=== PATIENT | female | born 1930 | race American Indian/Alaskan Native ===

== ENCOUNTER 2018-05-12 11:38 | Outpatient (CLI) | payer MEDICARE ==
--- NOTE | 2018-05-12 12:44 | Mammography Report ---
BILATERAL DIGITAL DIAGNOSTIC MAMMOGRAM WITH CAD : 05/12/18 11:38:00 CLINICAL: Known left breast cancer being treated with Arimidex. COMPARISON:01/06/18 left mammogram and 12/06/13 bilateral mammogram FINDINGS: There are bilateral scattered fibroglandular densities. A left subareolar biopsy clip and no mammographic abnormality at the clip. Extensive bilateral benign secretory calcifications. Bilateral arterial calcifications. No mass, architectural distortion or suspicious calcifications. IMPRESSION: No mammographic evidence of malignancy. BI-RADS CATEGORY: 2 -- Benign RECOMMENDATION: Routine mammographic screening in one year. COMMENT: Patient follow-up letters are generated via our [employer] application.
== END 2018-05-12 11:39 | disposition home or self-care (01) ==
LOC: SPVWC 11:38
PROVIDERS: ATTEND Surgery
DX: C50.912 Malignant neoplasm of unspecified site of left female breast (principal)
CPT/HCPCS: 77066

== ENCOUNTER 2018-11-10 10:07 | Outpatient (CLI) | payer MEDICARE ==
--- NOTE | 2018-11-10 11:16 | Mammography Report ---
DIGITAL DIAGNOSTIC MAMMOGRAM WITH CAD, -- 11/10/2018 INDICATION: 88-year-old with a known left breast cancer treated with Arimidex TECHNIQUE: Digital left mammographic imaging was performed. This examination was interpreted with the benefit of Computer-aided Detection analysis. COMPARISON: 01/06/2018 FINDINGS: Breast Density: The breasts are almost entirely fatty. There is no evidence of dominant mass, suspicious calcifications or architectural distortion in the l eft breast. Subareolar biopsy clip with no mass or other mammographic finding at the clip. Benign kellie cifications, some of which are arterial. IMPRESSION: No mammographic evidence of malignancy. Follow up recommendation: Routine yearly BI-RADS Category 2: Benign. A "normal" or negative report should not discourage follow up or biopsy of a clinically significant f inding. A written summary of these findings will be mailed to the patient. The patient will be entered into a mammography reporting system which will generate a reminder letter for the patient's next appointmen t at the appropriate interval. According to the [employer], yearly mammograms are recommended starting at age 40 and continuing as long as a woman is in good health. Breast MRI is recommended for women with an franco roximately 20-25% or greater lifetime risk of breast cancer, including women with a strong family his tory of breast or ovarian cancer and women who have been treated for Hodgkin's disease. Signer Name: Isiah Tamayo MD Signed: 11/10/2018 11:11 AM Workstation Name: [id number]
== END 2018-11-10 10:08 | disposition home or self-care (01) ==
LOC: SPVWC 10:07
PROVIDERS: ATTEND Surgery
DX: C50.912 Malignant neoplasm of unspecified site of left female breast (principal)

== ENCOUNTER 2019-05-18 09:54 | Outpatient (CLI) | payer MEDICARE ==
--- NOTE | 2019-05-18 11:01 | Mammography Report ---
DIGITAL DIAGNOSTIC MAMMOGRAM WITH CAD, 05/18/2019 INDICATION: 89-year-old with known left breast cancer on Arimidex. TECHNIQUE: Digital mammographic imaging was performed. This examination was interpreted with the benefit of Computer-aided Detection analysis. COMPARISON: 05/12/2018 FINDINGS: Breast Density: There are scattered areas of fibroglandular density. The known left breast cancer is now a distinct periareolar mass with a biopsy clip at 2:00 measuring approximately 1.5 x 1.0 cm. No architectural distortion or suspicious calcifications of the left is[address] st. Extensive bilateral benign calcifications. There is no evidence of dominant mass, suspicious calc ifications or architectural distortion in the right breast. IMPRESSION: A known left breast cancer with a 1.5 cm mass. Follow up recommendation: Clinical exam BI-RADS Category 6: Known Biopsy-Proven Malignancy. A "normal" or negative report should not discourage follow up or biopsy of a clinically significant f inding. A written summary of these findings will be mailed to the patient. The patient will be entered into a mammography reporting system which will generate a reminder letter for the patient's next appointmen t at the appropriate interval. According to the [employer], yearly mammograms are recommended starting at age 40 and continuing as long as a woman is in good health. Breast MRI is recommended for women with an franco roximately 20-25% or greater lifetime risk of breast cancer, including women with a strong family his tory of breast or ovarian cancer and women who have been treated for Hodgkin's disease. Signer Name: Isiah Tamayo MD Signed: 05/18/2019 10:56 AM Workstation Name: [id number]
== END 2019-05-18 09:55 | disposition home or self-care (01) ==
LOC: SPVWC 09:54
PROVIDERS: ATTEND Surgery
DX: C50.412 Malignant neoplasm of upper-outer quadrant of left female breast (principal); N63.21 Unspecified lump in the left breast, upper outer quadrant
CPT/HCPCS: 77066

== ENCOUNTER 2019-10-27 09:16 | Day surgery (SDC) | payer MEDICARE ==
--- NOTE | 2019-10-25 13:03 | Anesthesia Consultation ---
Anesthesia Consult and Med Hx Date of service: 10/27/19 - Airway Anesthetic Teeth Evaluation: Dentures (upper), Partials (lower) ROM Head & Neck: Adequate Mental/Hyoid Distance: Adequate Mallampati Class: Class III Intubation Access Assessment: Possibly Difficult - Pulmonary Exam CTA: Yes - Cardiac Exam Cardiac Exam: RRR (irregular rhythm, grade 3/6 systolic murmur) - Pre-Operative Health Status ASA Pre-Surgery Classification: ASA4 Proposed Anesthetic Plan: Local, MAC Nerve Block: PEC - Pulmonary Hx Smoking: No Hx Asthma: Yes (no inhaler use in recent years) Hx Respiratory Symptoms: Yes (stable 2 pillow orthopnea) Home Oxygen Therapy: No - Cardiovascular System Hx Hypertension: Yes Hx Heart Attack/AMI: No Hx Percutaneous Transluminal Coronary Angioplasty (PTCA): No Hx Cardia Arrhythmia: Yes (a-fib, last dose eliquis 10/24/19) Hx Pacemaker: No Hx Internal Defibrillator: No 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 HR noted to be 120 on pre-assessment VS however manual pulse check seemed much slower. EKG ordered showing a-fib rate controlled in the 80s. Cardiology records and note reviewed; patient high risk for GA. I discussed at length with the patient the risks of GA and sedation in the context of her current medical conditions, including risk of intraoperative HD instability, periop CHF, FL, CVA, cardiac arrest or . Case also discussed with surgeon. Plan MAC w/ PEC block and supplemental local anesthetic by surgeon. Patient verbalized understanding of the anesthetic plan and risks and is in agreement to proceed.
[~2019-10-27 09:16] MED LIST: ACETAMINOPHEN 500 MG TAB PO SCH; GABAPENTIN 300 MG CAP PO NR; LACTATED RINGERS 1,000 ML IV SCH; MIDAZOLAM 2 MG/2 ML INJ IV NR; WATER FOR IRRIG STERILE 1,500 ML BOTTLE IR ONE; ceFAZolin/Water 2 GM/20 ML 2 GM/20 ML SYRINGE IV NR
[2019-10-27] MEDS ORDERED: dexAMETHasone 4 MG/ML VIAL ONE (09:39)
[2019-10-27] MEDS ORDERED: BUPIVACAINE/PF (0.5%) 5 MG/1 ML 30 ML VIAL INFILTRATI ONE (09:39)
[2019-10-27] MEDS ORDERED: fentaNYL 100 MCG/2 ML INJ IV PRN (11:11)
--- NOTE | 2019-10-27 11:11 | Anesthesia Day of Surgery ---
Anesthesia Day of Surgery - Day of Surgery Patient Examined: Yes Patient H&P Reviewed: Yes Patient is NPO: Yes Cardiac Clearance: Yes
[2019-10-27] MEDS ORDERED: KETAMINE/STERILE WATER 50 MG/ML SYRINGE ONE (11:57)
[2019-10-27] MEDS ORDERED: MIDAZOLAM 2 MG/2 ML INJ ONE (11:57)
[2019-10-27] MEDS ORDERED: HYDROmorphone 1 MG/1 ML INJ ONE (11:57)
[2019-10-27] MEDS ORDERED: LIDOCAINE (1%) 10 MG/1 ML VIAL 20 ML MDV ONE (12:02)
[2019-10-27] MEDS ORDERED: BUPIVACAINE/PF (0.25%) 2.5 MG/ML 30 ML VIAL INFILTRATI ONE ×3 (12:03→12:44)
[2019-10-27] MEDS ORDERED: LIDOCAINE (1%) 10 MG/1 ML VIAL 20 ML MDV INFILTRATI ONE ×2 (12:44)
[2019-10-27] MEDS ORDERED: WATER FOR IRRIG STERILE 1,500 ML BOTTLE IR ONE (13:30)
--- NOTE | 2019-10-27 14:20 | Operative Report ---
Operative Report Operative Report: Operative Report: October 27, 2019 Preoperative diagnosis: Left breast cancer of the retroareolar/upper outer quadrant Postoperative diagnosis: Same Procedure: Left central mastectomy Surgeon: Tati Daniel MD Dye Tub Operator: Emily Ojeda MD Anesthesia: Local MAC Findings: Left central mastectomy with clip present within radiograph specimen Complications: None EBL: Less than 25 cc Drains: 15 [place] STEVE Disposition: PACU in good condition Indications for operative procedure: This is an 89 year old lady with left breast cancer of the upper outer quadrant/retroareolar, Stage I [id number] ER/NH positive. She was diagnosed with left breast cancer in July 2017 and declined s urgery. She was started on Anastrozole and has been followed closely. Initially left breast cancer mass decreased in size that was noted on mammogram, ultrasound and physical exam. However, over the past 6 months, left breast cancer mass has increased in size and recommendations were to proceed with a left central mastectomy given disease progression. Recent ultrasound and diagnostic mammogram with consistent findings. Left axillary ultrasound with benign appearing axillary lymph nodes. Her case was presented at cancer conference as well with recommendations for left central mastectomy and given benign appearing axillary lymph nodes, SLNB not recommended, also surgery would be under local MAC anesthesia. Patient is not a candidate for chemotherapy. She met with radiation oncology as well with recommendations as above. She wished to proceed with the above procedure. Procedure in detail: Anesthesia placed left pectoral block. Patient was then taken to the operating room. Local MAC anesthesia was administered. Left breast and axilla were prepped and draped in the normal sterile operative fashion. Timeout was performed. Ultrasound was used as well, known cancer at 3:00 position 1 cm FN. Attention was then taken towards the left breast. NAC was outlined with markings for incision; skin/surgical area was anesthesized with 1% lidocaine with quarter percent Marcaine. A skin incision was made with a 10 blade knife and dissection taken down to subcutaneous tissues. First began raising of the superior flap with dissection taken down posteriorly towards the the pectoralis muscle, followed by raising of the inferior flap, medial flap and lateral flap with all flaps taken down towards the pectoralis muscle. The breast area of concern was appropriately removed posteriorly with the aid of the Bovie cautery. Specimen was marked and then sent to pathology and radiology; radiograph specimen with mass and clip present. Breast cavity was irrigated and hemostasis was obtained. A 15 [place] STEVE drain placed given patient will resume her anticougulation medicine tomorrow. The posterior deep breast tissues were approximated and closed using interrupted 3-0 Vicryl. The subcutaneous tissues were approximated and closed using interrupted 3-0 Vicryl followed by closing of the skin with a running 4-0 Monocryl and skin affix. The patient tolerated surgery very well and was transported to PACU in good condition.
--- NOTE | 2019-10-27 14:24 | Short Stay Summary ---
Short Stay Documentation Date of service: 10/27/19 - History H&P: obtained from office - Allergies and Medications Current Medications: Allergies No Known Allergies Allergy (Verified 10/18/19 10:21) Home Medications Medication Instructions Recorded Confirmed Last Taken Type Alendronate Sodium [Fosamax] 70 mg PO QWEEK 10/18/19 10/27/19 10/25/19 09:00 History Anastrozole [Arimidex] 1 mg PO QDAY 10/18/19 10/27/19 10/26/19 09:00 History Apixaban [Eliquis] 2.5 mg PO BID 10/18/19 10/27/19 10/25/19 09:00 History Cholecalciferol (Vitamin D3) 2,000 unit PO QDAY 10/18/19 10/27/19 10/26/19 09:00 History [Vitamin D3 2,000 UNIT CAP] Dorzolamide/Timolol/Pf 1 each OP DAILY 10/18/19 10/27/19 10/26/19 09:00 History [Dorzolamide-Timolol 2%-0.5%] Latanoprost 0.005% [Xalatan 0.005%] 1 drop OP QPM 10/18/19 10/27/19 10/26/19 20:00 History Mv-Mn/Folic Acid/Calcium/Vit K 1 each PO DAILY 10/18/19 10/27/19 10/26/19 09:00 History [Women's 50 Plus Multivit Tab] Netarsudil Mesylate [Rhopressa] 1 drop OU QHS 10/18/19 10/27/19 10/26/19 20:00 History Triamter/Hctz 37.5-25 mg 1 tab PO QDAY 10/18/19 10/27/19 10/26/19 09:00 History [Maxzide-25] hydrALAZINE [Apresoline TAB] 100 mg PO BID 10/18/19 10/27/19 10/27/19 08:00 History oxyCODONE /ACETAMINOPHEN [Percocet 1 tab PO Q6HR PRN #15 tablet 10/27/19 Unknown Rx 5/325] Active Medications Acetaminophen (Tylenol) 1,000 mg PO PREOP NADYA Stop: 10/27/19 23:59 Last Admin: 10/27/19 09:45 Dose: 1,000 mg Documented by: Fentanyl (Sublimaze) 50 mcg IV Q5MIN PRN PRN Reason: Pain , Severe (7-10) Gabapentin (Gabapentin) 300 mg PO PREOP NR Stop: 10/27/19 23:59 Last Admin: 10/27/19 09:45 Dose: 300 mg Documented by: Cefazolin Sodium (Ancef/Sterile Water 2 Gm/20 Ml) 2 gm in 20 mls @ 80 mls/hr IV PREOP NR; Protocol Stop: 10/27/19 21:00 Lactated Ringer's (Lactated Ringers) 1,000 mls @ 100 mls/hr IV DIRECT NADYA Stop: 10/27/19 23:59 Last Admin: 10/27/19 10:05 Dose: 100 mls/hr Documented by: Midazolam HCl (Versed) 2 mg IV PREOP NR Stop: 10/27/19 23:59 Last Admin: 10/27/19 10:59 Dose: 1 mg Documented by: - Brief post op/procedure progress note Date of procedure: 10/27/19 Pre-op diagnosis: left breast cancer Post-op diagnosis: same Procedure: left central mastectomy Anesthesia: MAC Findings: left central mastectomy with clip and mass present Surgeon: CHRISTINE PATHAK Estimated blood loss: minimal Pathology: list (left central mastectomy) Specimen disposition: to lab Condition: stable - Disposition Condition at discharge: Good Disposition: DC-01 TO HOME OR SELFCARE Short Stay Discharge Plan Activity: other (no heavy lifting) Diet: regular Wound: keep clean and dry (wear breast binder; may shower in 48 hours; no baths, pools or lakes; do not rub or scrub incision) Follow up with: CHRISTINE PATHAK MD [Staff Physician] - 7 Days Prescriptions: oxyCODONE /ACETAMINOPHEN [Percocet 5/325] 1 tab PO Q6HR PRN #15 tablet PRN Reason: Pain
--- NOTE | 2019-10-27 15:35 | Post Anesthesia Evaluation ---
- Post Anesthesia Evaluation Patient Participated: Yes Airway Patent: Yes Stable Respiratory Function: Yes Nausea/Vomiting: No Temp > 96.8F: Yes Pain Manageable: Yes Adequeate Hydration: Yes Anesthesia Complications: No Other Comments: Awake, alert, HD stable at preop baseline, SpO2 98% on RA. Pain well controlled without additional IV opioids while in PACU. OK for d/c to home.
[2019-10-27 16:05] VITALS: BP 145/86
--- NOTE | 2019-10-28 10:09 | Mammography Report ---
BREAST SPECIMEN RADIOGRAPH HISTORY: Lumpectomy FINDINGS/IMPRESSION: The submitted radiograph or radiographs demonstrate(s) the presence of a biopsy marker and a small sp iculated mass. No localization wire is present. Signer Name: Kristi Turpin MD Signed: 10/28/2019 10:05 AM Workstation Name: [id number]
== END 2019-10-27 16:55 | disposition home or self-care (01) ==
LOC: OR 09:16
PROVIDERS: ATTEND Surgery
DX: C50.412 Malignant neoplasm of upper-outer quadrant of left female breast (principal); Z20.828 Contact with and (suspected) exposure to other viral communicable diseases; H40.9 Unspecified glaucoma; G62.9 Polyneuropathy, unspecified; E78.00 Pure hypercholesterolemia, unspecified; I48.91 Unspecified atrial fibrillation; J45.909 Unspecified asthma, uncomplicated; E66.9 Obesity, unspecified; N18.9 Chronic kidney disease, unspecified; M19.90 Unspecified osteoarthritis, unspecified site; Z80.8 Family history of malignant neoplasm of other organs or systems; Z79.899 Other long term (current) drug therapy; Z86.718 Personal history of other venous thrombosis and embolism; Z90.710 Acquired absence of both cervix and uterus; Z98.891 History of uterine scar from previous surgery; Z96.652 Presence of left artificial knee joint; Z98.49 Cataract extraction status, unspecified eye
CPT/HCPCS: 19301; 76098; 88307; 93005; J0690; J1100; J1170; J2250; J3490; J7120; U0003; 64450; 88342

== ENCOUNTER 2020-04-25 09:10 | Outpatient (CLI) | payer MEDICARE ==
--- NOTE | 2020-04-25 10:42 | Mammography Report ---
DIGITAL DIAGNOSTIC MAMMOGRAM WITH CAD CONVENTIONAL, 04/25/2020 CLINICAL INFORMATION / INDICATION: Patient presents for six-month follow-up following left lumpectomy for left breast cancer. MALIGNANT NEOPLASM OF UPPER OUTER QUAD OF LEFT BREAST TECHNIQUE: Digital bilateral mammographic imaging was performed. This examination was interpreted with the benefit of Computer-aided Detection analysis. COMPARISON: Prior mammograms 05/18/2019 and 05/12/2018 FINDINGS: Breast Density: There are scattered areas of fibroglandular density. No dominant mass, suspicious calcifications or architectural distortion in either breast. There is new benign postlumpectomy change seen in the anterior subareolar to 3:00 left breast. There are stable benign-appearing calcifications seen in both breasts. IMPRESSION: No mammographic evidence of malignancy. Follow up recommendation: Routine yearly BI-RADS Category 2: Benign. A "normal" or negative report should not discourage follow up or biopsy of a clinically significant f inding. A written summary of these findings will be mailed to the patient. The patient will be entered into a mammography reporting system which will generate a reminder letter for the patient's next appointmen t at the appropriate interval. According to the [employer], yearly mammograms are recommended starting at age 40 and continuing as long as a woman is in good health. Breast MRI is recommended for women with an franco roximately 20-25% or greater lifetime risk of breast cancer, including women with a strong family his tory of breast or ovarian cancer and women who have been treated for Hodgkin's disease. Signer Name: Nimisha Jacob MD Signed: 04/25/2020 10:37 AM Workstation Name: [email or web address]
== END 2020-04-25 09:11 | disposition home or self-care (01) ==
LOC: SPVWC 09:10
PROVIDERS: ATTEND Surgery
DX: C50.412 Malignant neoplasm of upper-outer quadrant of left female breast (principal); R92.1 Mammographic calcification found on diagnostic imaging of breast
CPT/HCPCS: 77066

== ENCOUNTER 2020-10-24 10:08 | Outpatient (CLI) | payer MEDICARE ==
--- NOTE | 2020-10-24 11:02 | Mammography Report ---
LEFT DIAGNOSTIC MAMMOGRAM INDICATION: Status post left breast lumpectomy. No new issues or complaints. COMPARISON: 04/25/2020, 10/27/2019, 08/17/2019, 05/18/2019 05/12/2018, 01/06/2018. FINDINGS: Left breast CC and MLO projection mammograms were obtained. The left breast is primarily co mposed of fatty tissue. Stable lumpectomy change in the left upper outer anterior breast. Stable jesus manuel gn-appearing, primary secretory and vascular, calcifications within the left breast. No suspicious ma ss, microcalcifications, or other abnormality. CAD was utilized. IMPRESSION: Stable post lumpectomy appearance of the left breast without evidence of malignancy. Patient will be due for annual bilateral mammogram in April 2021. BI-RADS Category 2: Benign. Recommend routine screening mammography in one year A "normal" or negative report should not discourage follow up or biopsy of a clinically significant f inding. A written summary of these findings will be mailed to the patient. FURTHER INFORMATION: According to the [employer], yearly mammograms are recommend ed starting at age 40 and continuing as long as a woman is in good health. Breast MRI is recommended for women with an approximately 20-25% or greater lifetime risk of breast cancer, including women wi th a strong family history of breast or ovarian cancer and women who have been treated for Hodgkin's disease. Signer Name: Clayton Robins MD Signed: 10/24/2020 10:58 AM Workstation Name: [id number]
== END 2020-10-24 10:09 | disposition home or self-care (01) ==
LOC: SPVWC 10:08
PROVIDERS: ATTEND Surgery
DX: R92.8 Other abnormal and inconclusive findings on diagnostic imaging of breast (principal); Z85.3 Personal history of malignant neoplasm of breast